=== PATIENT | male | born 1975 | race Native Hawaiian/Other Pacific Islander ===

== ENCOUNTER 2024-07-06 07:39 | Outpatient (CLI) | payer BC, SELFPAY ==
--- OUTSIDE RECORDS SUMMARY | 2024-07-10 00:11 | XMS_ITS | Clinical Summary ---
Author Organization [facility] Address [place], [place] [address] Care Team Providers Care Tub Washer Name Role Phone Clinic, [facility] Primary [facility] Pr ovider Allergies No [...] (160 lb 11.2 oz) 023 10:36 AM SCREEN CLEANER Height - - Body Mass Index - [...] age to complete this topic Care Teams Tub Washer Relationship Specialty Start Date End Date Clinic, [facility] [address] [id number] PCP - General 12/12/17
== END 2024-07-06 07:40 | disposition home or self-care (01) ==
LOC: NFLDREF 07-10 00:09
PROVIDERS: PCP Internal Medicine; Referring Provider Internal Medicine; Visit Provider Internal Medicine
DX: Z00.00 Encounter for general adult medical examination without abnormal findings (principal); E78.5 Hyperlipidemia, unspecified; Z13.9 Encounter for screening, unspecified
CPT/HCPCS: 80053; 80061

== ENCOUNTER 2024-07-09 08:04 | Outpatient (CLI) | payer BC, SELFPAY ==
--- OUTSIDE RECORDS SUMMARY | 2024-07-09 08:06 | XMS_ITS | Clinical Summary ---
Author Organization [facility] Address [place], [place] [address] Care Team Providers Care Brake Drum Molder Name Role Phone Clinic, [facility] Pr ovider Allergies No known active allergies Medications Medication Sig Dispensed Refills Start Date End Date Status simvastatin (ZOCOR) 40 mg tablet Take 40 mg by mouth at bedtime. 12/15/2022 Active Active Problems Problem Noted Date Diagnosed Date External hemorrhoids without mention of complica tion 11/29/2009 Social History Tobacco Use Types Packs/Day Years Used Date Smoking Tobacco: Never Smokeless Tobacco: Never Tobacco Cessation:Counseling Given: Not Answered Alcohol Use Standard Drinks/Week Comments Not Asked 0 (1 standard drink = 0.6 oz pur e alcohol) Sex and Gender Information Value Date Recorded Sex Assigned at Not on file Gender Identity Not on file Sexual Orientation Not on file Obstetrics History Last Filed Vital Signs Vital Sign Reading Time Taken Comments Blood Pressure 135/88 01/30/2023 7:30 AM CDT Pulse 76 01/30/2023 7:30 AM CDT Temperature 36.3 ??C (97.3 ??F) 01/30/2023 7:30 AM CD T Respiratory Rate - - Oxygen Saturation 100% 01/30/2023 7:30 AM CDT Inhaled Oxygen Concentration - - Weight 72.9 kg (160 lb 11.2 oz) 023 10:36 AM MEDICAL CODER Height - - Body Mass Index - - Plan of Treatment Health Maintenance Due Date Last Done Comments Tdap 1986 Depression screening for age 12+ 1987 HIV for age 15-65 1990 BMI (ht and wt on same day) for age 18+ 1993 Hepatitis C screening for ag e 18-79 1993 Tetanus booster 1995 Colonoscopy through age 75 02/17/2020 Lipids for age 45-75 02/17/2020 COVID-19 vaccine series ( - 2022- season) 2023 09/16/2021, 03/01/2021, 02/08/2021 Influenza for age 9-49 07/12/2024 Pneumococcal series for age 6-64 Aged Out No longer eligible b ased on patient's age to complete this topic Care Teams Brake Drum Molder Relationship Specialty Start Date End Date Clinic, [facility] [address] [id number] PCP - General 12/12/17
== END 2024-07-09 08:05 | disposition home or self-care (01) ==
PROVIDERS: PCP Internal Medicine; Visit Provider Internal Medicine
DX: Z00.00 Encounter for general adult medical examination without abnormal findings (principal); N52.9 Male erectile dysfunction, unspecified; E78.5 Hyperlipidemia, unspecified
CPT/HCPCS: 84403

== ENCOUNTER 2025-09-03 07:45 | Outpatient (CLI) | payer BC, SELFPAY | END 2025-09-03 07:46 | disposition home or self-care (01) | LOC: NFLDREF 09-04 19:42 | PROVIDERS: PCP Internal Medicine; Referring Provider Internal Medicine; Visit Provider Internal Medicine | DX: E78.5 Hyperlipidemia, unspecified (principal); Z13.9 Encounter for screening, unspecified | CPT/HCPCS: 80053; 80061; G0103 ==